=== PATIENT | male | born 2000 | race Two or more races ===

== ENCOUNTER → 2024-08-27 10:45 | Outpatient (REF) | payer OTHER, SELFPAY ==
[2024-08-27 14:24] LABS: Rubella Positive
[2024-08-29 10:27] LABS: Quantiferon Mitogen minus NIL 9.85 IU/mL; Quantiferon NIL 0.15 IU/mL; Quantiferon TB Gold Plus Negative (Negative)
== END ==
LOC: OHS 10:45
PROVIDERS: ATTENDING PHYSICIAN Nurse Practitioner Family
DX: Z23 Encounter for immunization (principal)
CPT/HCPCS: 36415; 86480; 86735; 86762; 86765